=== PATIENT | female | born 1970 | race Caucasian/White ===

== ENCOUNTER 2018-09-16 10:45 | Emergency (ER) | payer OTHER ==
[~2018-09-16] VITALS: Ht 172.7 cm; Wt 117.9 kg
[~2018-09-16 10:45] MED LIST: ALPR0.5T PO
[2018-09-16 11:23] LABS: U PREG PATIENT NEGATIVE (NEG)
--- NOTE | 2018-09-16 11:50 | PHYS DOC ---
Past Medical History Past Medical History: Anxiety, High Cholesterol, Hypertension Past Surgical History: Cholecystectomy, , Other Additional Past Surgical Histo: rt.shoulder,ganglion cyst removal,rt knee scope Alcohol Use: Rarely Drug Use: None Adult General Chief Complaint Chief Complaint: ABDOMINAL PAIN HPI HPI Patient is a 48-year-old female who presents with complaint of epigastric abdominal pain that started 2 days ago. Patient states that pain is gotten a lot worse this morning. She states the pain radiates into her back. She rates pain at an 8 out of 10 and reports that she has had nausea associated with the pain. She states that she had her gallbladder out previously and states that she usually has loose stools when she eats but states that she has had a difficult time having bowel movement for the last 2 days. She denies any fever. She describes pain as being a deep cramp and at times sharp. Patient states that there were no alleviating factors and states that pain is worsened with movement and with palpation of her abdomen. Review of Systems Review of Systems Constitutional: Denies fever or chills [] Respiratory: Denies cough or shortness of breath [] Cardiovascular: No additional information not addressed in HPI [] GI: Complains of abdominal pain with nausea. No vomiting or diarrhea [] : Denies dysuria or hematuria [] All other systems were reviewed and found to be within normal limits, except as documented in this note. Current Medications Current Medications Current Medications Medications (Trade) Dose Ordered Sig/[facility] Start Time Stop Time Status Last Admin Dose Admin Fentanyl Citrate (Fentanyl 2ml Vial) 50 mcg PRN Q15MIN PRN 09/16/18 11:45 09/16/18 19:00 09/16/18 15:22 50 MCG Info (CONTRAST GIVEN -- Rx MONITORING) 1 each PRN DAILY PRN 09/16/18 14:00 09/18/18 13:59 Iohexol (Omnipaque 300 Mg/ml) 60 ml 1X ONCE 09/16/18 14:00 09/16/18 14:01 DC 09/16/18 14:22 60 ML Multi-Ingredient Mouthwash/Gargle (Gi Cocktail) 20 ml 1X ONCE 09/16/18 15:15 09/16/18 15:16 DC 09/16/18 15:20 20 ML Ondansetron HCl (Zofran) 4 mg 1X ONCE 09/16/18 12:00 09/16/18 12:01 DC 09/16/18 12:13 4 MG Sodium Chloride 1,000 ml @ 1,000 mls/hr Q1H 09/16/18 12:00 09/16/18 12:59 DC 09/16/18 12:12 1,000 MLS/HR Allergies Allergies Allergies Coded Allergies Type Severity Reaction Last Updated Verified No Known Drug Allergies 02/26/15 No Physical Exam Physical Exam Constitutional: Well developed, well nourished, no acute distress, non-toxic appearance. [] HENT: Normocephalic, atraumatic, bilateral external ears normal, oropharynx moist, no oral exudates, nose normal. [] Eyes: PERRLA, EOMI, conjunctiva normal, no discharge. [] Neck: Normal range of motion, no tenderness, supple, no stridor. [] Cardiovascular: Regular rate and rhythm [] Lungs & Thorax: Bilateral breath sounds clear to auscultation [] Abdomen: Bowel sounds normal, soft, with moderate epigastric and left upper quadrant tenderness. [] Skin: Warm, dry, no erythema, no rash. [] Extremities: No tenderness, no cyanosis, no clubbing, ROM intact, no edema. [] Neurologic: Alert and oriented X 3, no focal deficits noted. [] Current Patient Data Vital Signs Vital Signs Date Time Temp Pulse Resp B/P (MAP) Pulse Ox O2 Delivery O2 Flow Rate FiO2 09/16/18 13:09 66 16 96/66 (76) 100 Room Air 09/16/18 11:30 98.6 98.6 Lab Values Laboratory Tests Test 09/16/18 10:52 09/16/18 11:10 Urine Collection Type Unknown Urine Color Yellow Urine Clarity Clear Urine pH 5.5 Urine Specific [place] 1.015 Urine Protein Negative mg/dL (NEG-TRACE) Urine Glucose (UA) Negative mg/dL (NEG) Urine Ketones (Stick) Negative mg/dL (NEG) Urine Blood Negative (NEG) Urine Nitrite Negative (NEG) Urine Bilirubin Negative (NEG) Urine Urobilinogen Dipstick 0.2 mg/dL (0.2 mg/dL) Urine Leukocyte Esterase Negative (NEG) Urine RBC 0 /HPF (0-2) Urine WBC 0 /HPF (0-4) Urine Squamous Epithelial Cells Occ /LPF Urine Bacteria 0 /HPF (0-FEW) Urine Test Negative (NEG) White Blood Count 8.6 x10^3/uL (4.0-11.0) Red Blood Count 4.95 x10^6/uL (3.50-5.40) Hemoglobin 15.4 g/dL (12.0-15.5) Hematocrit 43.8 % (36.0-47.0) Mean Corpuscular Volume 89 fL (79-100) Mean Corpuscular Hemoglobin 31 pg (25-35) Mean Corpuscular Hemoglobin Concent 35 g/dL (31-37) Red Cell Distribution Width 14.1 % (11.5-14.5) Platelet Count 294 x10^3/uL (140-400) Neutrophils (%) (Auto) 54 % (31-73) Lymphocytes (%) (Auto) 31 % (24-48) Monocytes (%) (Auto) 8 % (0-9) Eosinophils (%) (Auto) 5 % (0-3) H Basophils (%) (Auto) 1 % (0-3) Neutrophils # (Auto) 4.7 x10^3uL (1.8-7.7) Lymphocytes # (Auto) 2.7 x10^3/uL (1.0-4.8) Monocytes # (Auto) 0.7 x10^3/uL (0.0-1.1) Eosinophils # (Auto) 0.4 x10^3/uL (0.0-0.7) Basophils # (Auto) 0.1 x10^3/uL (0.0-0.2) Sodium Level 138 mmol/L (136-145) Potassium Level 4.1 mmol/L (3.5-5.1) Chloride Level 100 mmol/L (98-107) Carbon Dioxide Level 28 mmol/L (21-32) Anion Gap 10 (6-14) Blood Urea Nitrogen 17 mg/dL (7-20) Creatinine 1.1 mg/dL (0.6-1.0) H Estimated GFR (Cockcroft-Gault) 52.8 BUN/Creatinine Ratio 15 (6-20) Glucose Level 93 mg/dL (70-99) Calcium Level 9.4 mg/dL (8.5-10.1) Total Bilirubin 0.4 mg/dL (0.2-1.0) Aspartate Amino Transferase (AST) 18 U/L (15-37) Alanine Aminotransferase (ALT) 36 U/L (14-59) Alkaline Phosphatase 97 U/L (46-116) Troponin I Quantitative < 0.017 ng/mL (0.000-0.055) Total Protein 7.4 g/dL (6.4-8.2) Albumin 3.6 g/dL (3.4-5.0) Albumin/Globulin Ratio 0.9 (1.0-1.7) L Lipase 152 U/L (73-393) Laboratory Tests 09/16/18 11:10 Laboratory Tests 09/16/18 11:10 EKG EKG [] Radiology/Procedures Radiology/Procedures [] Impressions: EXAM: Abdomen and pelvis CT with intravenous contrast. HISTORY: Pain. TECHNIQUE: Computed tomographic images of the abdomen and pelvis were obtained following the administration of 60 cc Omnipaque 300 intravenous contrast. Multiplanar reformatting was performed. *One or more of the following individualized dose reduction techniques were utilized for this examination: 1. Automated exposure control. 2. Adjustment of the mA and/or kV according to patient size. 3. Use of iterative reconstruction technique. COMPARISON: None. FINDINGS: Evaluation of the lower thorax is unremarkable. There is mild hepatomegaly and suspected hepatic steatosis. The gallbladder is surgically absent. The pancreas, spleen and adrenal glands are unremarkable. The kidneys are unremarkable. There is no appendicitis. There is no bowel obstruction. There are few colonic diverticula. The uterus is unremarkable. There are multiple ovarian follicles with dominant right ovarian follicular cysts measuring 2.9 cm and 1.6 cm. There is no lymphadenopathy. There is no suspicious osseous lesion. There is an incidental transitional lumbosacral segment. IMPRESSION: 1. 2 right ovarian follicular cysts, the largest of which measures 2.9 cm. 2. Few colonic diverticula. There is no evidence of diverticulitis. 3. Suspected mild hepatomegaly and hepatic steatosis. Electronically signed by: Siobhan Black MD (09/16/2018 2:40 PM) [facility] Course & Med Decision Making Course & Med Decision Making Pertinent Labs and Imaging studies reviewed. (See chart for details) [] Dragon Disclaimer Dragon Disclaimer This electronic medical record was generated, in whole or in part, using a voice recognition dictation system. Departure Departure Impression: Primary Impression: Epigastric abdominal pain Disposition: HOME, SELF-CARE Condition: STABLE Referrals: JOYCE IRIZARRY (PCP) Patient Instructions: Abdominal Pain Scripts Omeprazole (OMEPRAZOLE) 40 Mg Capsule.dr 1 CAP PO DAILY, #30 CAP Prov: NELLY PETERS Jr. DO 09/16/18 Ondansetron Hcl (ZOFRAN) 4 Mg Tablet 4 MG PO PRN TID PRN for NAUSEA/VOMITING, #15 nausea/vomiting Prov: NELLY PETERS Jr. DO 09/16/18 Hydrocodone/Apap 5-325 (NORCO 5-325 TABLET) 1 Each Tablet 1 EACH PO PRN Q6HRS PRN for PAIN, #15 as needed for pain Prov: NELLY PETERS Jr. DO 09/16/18 NELLY PETERS Jr. DO Sep 16, 2018 11:50
[2018-09-16] MEDS ORDERED: ONDANSETRON PF 4 MG/2 ML VIAL. IV ONE (12:00)
[2018-09-16] MEDS ORDERED: IV NORMAL SALINE 1000ML BAG 1,000 ML IV SCH (12:00)
[2018-09-16] MEDS: fentaNYL PF VIAL 100 MCG/2 ML VIAL IV PRN ×2 (12:11→15:22)
[2018-09-16 12:16] LABS: CALCIUM 9.4 mg/dL (8.5-10.1); CREATININE 1.1 mg/dL (0.6-1.0); GFR 52.8; POTASSIUM 4.1 mmol/L (3.5-5.1)
--- NOTE | 2018-09-16 12:17 | EKG ---
[facility] [address] [place] [address] Test Date: 2018-09-16 Test Time: 12:13:01 Pat Name: MARCELLE JORGE Department: Room: Gender: F [employer] Sprayer: [place] : 1970 Requested By: NELLY PETERS Order Number: [id number] Reading MD: Amandeep Medina Measurements Intervals [place] Rate: 64 P: 25 UT: 134 QRS: 62 QRSD: 84 T: 36 QT: 458 QTc: 477 Interpretive Statements SINUS RHYTHM PROLONGED QT Electronically Signed On 09-22-2018 9:23:43 [employer] by Amandeep Medina
[2018-09-16 12:22] LABS: ALBUMIN 3.6 g/dL (3.4-5.0); ALBUMIN/GLOBULIN RATIO 0.9 (1.0-1.7); TOTAL BILIRUBIN 0.4 mg/dL (0.2-1.0); TOTAL PROTEIN 7.4 g/dL (6.4-8.2)
[2018-09-16 12:23] LABS: BASO # 0.1 x10^3/uL (0.0-0.2); BASO % 1 % (0-3); EOS # 0.4 x10^3/uL (0.0-0.7); EOS % 5 % (0-3); HEMATOCRIT 43.8 % (36.0-47.0); HEMOGLOBIN 15.4 g/dL (12.0-15.5); LYMPH # 2.7 x10^3/uL (1.0-4.8); LYMPH % 31 % (24-48); MEAN CORPUSCULAR HEMOGLOBIN 31 pg (25-35); MEAN CORPUSCULAR HGB CONC 35 g/dL (31-37); MEAN CORPUSCULAR VOLUME 89 fL (79-100); MONO # 0.7 x10^3/uL (0.0-1.1); MONO % 8 % (0-9); NEUT # 4.7 x10^3uL (1.8-7.7); NEUT % 54 % (31-73); PLATELET COUNT 294 x10^3/uL (140-400); RED BLOOD COUNT 4.95 x10^6/uL (3.50-5.40); RED CELL DISTRIBUTION WIDTH 14.1 % (11.5-14.5); WHITE BLOOD COUNT 8.6 x10^3/uL (4.0-11.0)
[2018-09-16] MEDS ORDERED: CONTRAST GIVEN. MC PRN (14:00)
[2018-09-16] MEDS ORDERED: IOHEXOL 300 MG/ML 100ML VIAL. IV ONE (14:00)
[2018-09-16 14:28] LABS: BILIRUBIN,URINE NEGATIVE (NEG); CLARITY,URINE CLEAR; COLOR,URINE YELLOW; NITRITE,URINE NEGATIVE (NEG); PH,URINE 5.5; PROTEIN,URINE NEGATIVE (NEG-TRACE); UROBILINOGEN,URINE 0.2 mg/dL (0.2 mg/dL)
--- NOTE | 2018-09-16 14:44 | RAD ---
EXAM: Abdomen and pelvis CT with intravenous contrast. HISTORY: Pain. TECHNIQUE: Computed tomographic images of the abdomen and pelvis were obtained following the administration of 60 cc Omnipaque 300 intravenous contrast. Multiplanar reformatting was performed. *One or more of the following individualized dose reduction techniques were utilized for this examination: 1. Automated exposure control. 2. Adjustment of the mA and/or kV according to patient size. 3. Use of iterative reconstruction technique. COMPARISON: None. FINDINGS: Evaluation of the lower thorax is unremarkable. There is mild hepatomegaly and suspected hepatic steatosis. The gallbladder is surgically absent. The pancreas, spleen and adrenal glands are unremarkable. The kidneys are unremarkable. There is no appendicitis. There is no bowel obstruction. There are few colonic diverticula. The uterus is unremarkable. There are multiple ovarian follicles with dominant right ovarian follicular cysts measuring 2.9 cm and 1.6 cm. There is no lymphadenopathy. There is no suspicious osseous lesion. There is an incidental transitional lumbosacral segment. IMPRESSION: 1. 2 right ovarian follicular cysts, the largest of which measures 2.9 cm. 2. Few colonic diverticula. There is no evidence of diverticulitis. 3. Suspected mild hepatomegaly and hepatic steatosis. Electronically signed by: Siobhan Black MD (09/16/2018 2:40 PM) [facility]
[2018-09-16 14:59] LABS: BACTERIA,URINE 0 /HPF (0-FEW); RBC,URINE 0 /HPF (0-2); SQUAMOUS EPITHELIAL CELL,UR OCC /LPF; WBC,URINE 0 /HPF (0-4)
[2018-09-16] MEDS ORDERED: LIDO:MAALOX 1:1 20 ML SINGLE DOSE. SWSW ONE (15:15)
[2018-09-16] MEDS ORDERED: ONDA4TAB7 PO (15:33)
[2018-09-16] MEDS ORDERED: HYDR-3164 PO (15:33)
[2018-09-16] MEDS ORDERED: OMEP40CA5 PO (16:03)
[2018-09-16 16:18] VITALS: BP 102/49
== END 2018-09-16 16:35 | disposition home or self-care (01) ==
LOC: ER 10:45
DX: R10.13 Epigastric pain (principal); N83.01 Follicular cyst of right ovary; K57.32 Diverticulitis of large intestine without perforation or abscess without bleeding; E78.00 Pure hypercholesterolemia, unspecified; I10 Essential (primary) hypertension; F41.9 Anxiety disorder, unspecified; Z90.49 Acquired absence of other specified parts of digestive tract; Z98.890 Other specified postprocedural states
CPT/HCPCS: 36415; 74177; 80053; 81001; 81025; 83690; 84484; 85025; 93005; 96374; 96375; 99284; J2405; J3010; J7030; Q9967

== ENCOUNTER 2018-10-13 05:28 | Emergency (ER) | payer OTHER ==
[~2018-10-13] VITALS: Ht 172.7 cm; Wt 123.4 kg
[~2018-10-13 05:28] MED LIST changes: +HYDR-3164 PO; +OMEP40CA5 PO; +ONDA4TAB7 PO
--- NOTE | 2018-10-13 06:10 | PHYS DOC ---
Past Medical History Past Medical History: Anxiety, High Cholesterol, Hypertension (KARTIK CRYSTAL DO) Past Surgical History: Cholecystectomy, , Other Additional Past Surgical Histo: rt.shoulder,ganglion cyst removal,rt knee scope (KARTIK CRYSTAL DO) Alcohol Use: Rarely Drug Use: None (KARTIK CRYSTAL DO) Adult General Chief Complaint Chief Complaint: POST-OP PROBLEM HPI HPI Patient is a 48 year old female who presents with diffuse body pain that started last night. Patient had EGD done yesterday for abdominal pain and states exam revealed polyps, biopsies obtained. She states last night she just could not get comfortable and has been experiencing "shooting nerve pain all over her body from her head to her toes and nausea." Also thinks her right arm and hand is swollen compared to her left. She took a hydrocodone and tylenol that "did not even touch the pain." She denies SOB, chest pain, diarrhea, dysphagia. Also denies feeling anxious or any recent life stressors. Of note she has not had her medication or the past two days secondary to her scheduled procedure. Reports history of panic attacks and anxiety. (KARTIK CRYSTAL DO) Review of Systems Review of Systems Constitutional: Denies fever or chills [] Eyes: Denies change in visual acuity, redness, or eye pain [] HENT: Denies nasal congestion or sore throat [] Respiratory: Denies cough or shortness of breath [] Cardiovascular: No chest pain, no dizziness GI: Reports abdominal pain and nausea : Denies dysuria or hematuria [] Musculoskeletal: Reports diffuse body pains Integument: Denies rash or skin lesions [] Neurologic: Denies headache, focal weakness or sensory changes [] Complete systems were reviewed and found to be within normal limits, except as documented in this note. (KARTIK CRYSTAL DO) Current Medications Current Medications Current Medications Medications (Trade) Dose Ordered Sig/Alvaro Start Time Stop Time Status Last Admin Dose Admin Lorazepam (Ativan) 0.5 mg 1X ONCE 10/13/18 06:30 10/13/18 06:31 DC 10/13/18 06:30 0.5 MG Ondansetron HCl (Zofran) 4 mg 1X ONCE 10/13/18 06:30 10/13/18 06:31 DC 10/13/18 06:28 4 MG Sodium Chloride 1,000 ml @ 1,000 mls/hr 1X ONCE 10/13/18 06:30 10/13/18 07:29 DC 10/13/18 06:25 1,000 MLS/HR (ANÍBAL IRELAND MD) Allergies Allergies Allergies Coded Allergies Type Severity Reaction Last Updated Verified No Known Drug Allergies 02/26/15 No (ANÍBAL IRELAND MD) Physical Exam Physical Exam Constitutional: obese, no acute distress, non-toxic appearance, appears anxious HENT: Normocephalic, atraumatic, oropharynx dry Eyes: PERRL, EOMI, conjunctiva normal, no discharge. [] Neck: Normal range of motion, tenderness over right lateral neck extending to shoulder, no crepitus Cardiovascular: Heart rate regular rhythm, no murmur [] Lungs & Thorax: Bilateral breath sounds clear to auscultation [] Abdomen: soft, no focal tenderness, no distension [] Skin: Warm, dry, no erythema, no rash. [] Extremities: moves all, no edema Neurologic: Alert and oriented X 3, normal motor function, normal sensory function, no focal deficits noted. [] Psychologic: anxious, normal judgement (KARTIK CRYSTAL DO) Current Patient Data Vital Signs Vital Signs Date Time Temp Pulse Resp B/P (MAP) Pulse Ox O2 Delivery O2 Flow Rate FiO2 10/13/18 05:40 98.0 77 18 179/96 (123) 98 Room Air 98.0 (ANÍBAL IRELAND MD) Lab Values Laboratory Tests Test 10/13/18 05:48 10/13/18 07:34 White Blood Count 8.8 x10^3/uL (4.0-11.0) Red Blood Count 4.79 x10^6/uL (3.50-5.40) Hemoglobin 14.1 g/dL (12.0-15.5) Hematocrit 42.7 % (36.0-47.0) Mean Corpuscular Volume 89 fL (79-100) Mean Corpuscular Hemoglobin 29 pg (25-35) Mean Corpuscular Hemoglobin Concent 33 g/dL (31-37) Red Cell Distribution Width 13.5 % (11.5-14.5) Platelet Count 270 x10^3/uL (140-400) Neutrophils (%) (Auto) 45 % (31-73) Lymphocytes (%) (Auto) 41 % (24-48) Monocytes (%) (Auto) 9 % (0-9) Eosinophils (%) (Auto) 4 % (0-3) H Basophils (%) (Auto) 1 % (0-3) Neutrophils # (Auto) 4.0 x10^3uL (1.8-7.7) Lymphocytes # (Auto) 3.6 x10^3/uL (1.0-4.8) Monocytes # (Auto) 0.8 x10^3/uL (0.0-1.1) Eosinophils # (Auto) 0.4 x10^3/uL (0.0-0.7) Basophils # (Auto) 0.1 x10^3/uL (0.0-0.2) Sodium Level 138 mmol/L (136-145) Potassium Level 3.7 mmol/L (3.5-5.1) Chloride Level 105 mmol/L (98-107) Carbon Dioxide Level 24 mmol/L (21-32) Anion Gap 9 (6-14) Blood Urea Nitrogen 17 mg/dL (7-20) Creatinine 0.9 mg/dL (0.6-1.0) Estimated GFR (Cockcroft-Gault) 66.5 BUN/Creatinine Ratio 19 (6-20) Glucose Level 106 mg/dL (70-99) H Calcium Level 8.8 mg/dL (8.5-10.1) Total Bilirubin 0.3 mg/dL (0.2-1.0) Aspartate Amino Transferase (AST) 21 U/L (15-37) Alanine Aminotransferase (ALT) 47 U/L (14-59) Alkaline Phosphatase 96 U/L (46-116) Creatine Kinase 87 U/L (26-192) Creatine Kinase MB (Mass) 0.8 ng/mL (0.0-3.6) Creatine Kinase MB Relative Index 0.9 % (0-4) Troponin I Quantitative < 0.017 ng/mL (0.000-0.055) Total Protein 7.2 g/dL (6.4-8.2) Albumin 3.1 g/dL (3.4-5.0) L Albumin/Globulin Ratio 0.8 (1.0-1.7) L Lipase 255 U/L (73-393) Urine Collection Type Unknown Urine Color Yellow Urine Clarity Clear Urine pH 5.5 Urine Specific [place] 1.015 Urine Protein Negative mg/dL (NEG-TRACE) Urine Glucose (UA) Negative mg/dL (NEG) Urine Ketones (Stick) Negative mg/dL (NEG) Urine Blood Negative (NEG) Urine Nitrite Negative (NEG) Urine Bilirubin Negative (NEG) Urine Urobilinogen Dipstick 0.2 mg/dL (0.2 mg/dL) Urine Leukocyte Esterase Negative (NEG) Urine RBC 0 /HPF (0-2) Urine WBC Occ /HPF (0-4) Urine Squamous Epithelial Cells Occ /LPF Urine Bacteria 0 /HPF (0-FEW) Urine Mucus Slight /LPF POC Urine HCG, Qualitative Hcg negative (Negative) Laboratory Tests 10/13/18 05:48 Laboratory Tests 10/13/18 05:48 (ANÍBAL IRELAND MD) EKG EKG [] (KARTIK CRYSTAL DO) EKG Normal sinus rhythm with a normal rate, normal axis, normal intervals, there are no acute ischemic ST/T changes. (ANÍBAL IRELAND MD) Radiology/Procedures Radiology/Procedures [] (KARTIK CRYSTAL DO) Radiology/Procedures PROCEDURE: ACUTE ABDOMEN SERIES Examination: ACUTE ABDOMEN SERIES History: PAIN, RECENT HX OF RECENT EGD Comparison/Correlation: 09/16/2017 CT abdomen and pelvis with contrast Findings: Upright frontal view of the chest was obtained. Supine and upright views of the abdomen were obtained. Heart size and pulmonary vascular are normal. No infiltrate or pleural effusion. No pneumothorax. Right upper quadrant surgical clips are present. No bowel obstruction. Fluid levels are present within nondistended bowel. Transitional L5 vertebra is suggested. Surgical clip at the right lateral midabdomen noted. Moderate quantity of retained stool in the colon. Impression: No obstruction. No infiltrate. No definite suspicious process. (ANÍBAL IRELAND MD) Course & Med Decision Making Course & Med Decision Making Pertinent Labs and Imaging studies reviewed. (See chart for details) [] Patient presents with diffuse body pains that started last night. She had EGD yesterday for investigation of her abdominal pain. Pain not controlled with tylenol or hydrocodone at home. Neurologically intact. Patient also concerned for right hand swelling. No significant edema noted in comparison to other hand. Of note patient has not had antianxiety medication for two days due to her scheduled procedure. Anxiety addressed. Currently labs, EKG and imaging is pending. Signing out patient to Dr. Ireland for further evaluation and final disposition. Discussed current findings and plan with patient and family, who acknowledge understanding and agreement. (KARTIK CRYSTAL DO) Course & Med Decision Making Patient care was assumed from Dr. Crystal at shift change. She states that she awakened with pain in her right arm which moved to her left arm and then spread throughout her whole body. She reports a sharp electrical-type "nerve" pain. She states that she is having right hand swelling but there is no evidence of any edema to the right hand relative to the left. Normal pulses are intact with the patient did have an IV in her right forearm yesterday for her EGD, but there is no evidence of any thrombophlebitis on exam. She is feeling better after anxiolytic, she has had no chest pain. She is neurologically intact. I discussed the uncertain etiology of her symptoms, the need for close follow-up with her PCP and return precautions. (ANÍBAL IRELAND MD) Dragon Disclaimer Dragon Disclaimer This electronic medical record was generated, in whole or in part, using a voice recognition dictation system. (KARTIK CRYSTAL DO) Departure Departure Impression: Primary Impression: Pain Additional Impression: Anxiety Disposition: 01 HOME, SELF-CARE Condition: STABLE Referrals: JOYCE IRIZARRY (PCP) Patient Instructions: Anxiety and Panic Attacks, Pain of Unknown Etiology ( Pain without a known Cause), Pain, Neuropathic Problem Qualifiers KARTIK CRYSTAL DO Oct 13, 2018 06:10 ANÍBAL IRELAND MD Oct 13, 2018 06:41
[2018-10-13 06:23] LABS: BASO # 0.1 x10^3/uL (0.0-0.2); BASO % 1 % (0-3); EOS # 0.4 x10^3/uL (0.0-0.7); EOS % 4 % (0-3); HEMATOCRIT 42.7 % (36.0-47.0); HEMOGLOBIN 14.1 g/dL (12.0-15.5); LYMPH # 3.6 x10^3/uL (1.0-4.8); LYMPH % 41 % (24-48); MEAN CORPUSCULAR HEMOGLOBIN 29 pg (25-35); MEAN CORPUSCULAR HGB CONC 33 g/dL (31-37); MEAN CORPUSCULAR VOLUME 89 fL (79-100); MONO # 0.8 x10^3/uL (0.0-1.1); MONO % 9 % (0-9); NEUT % 45 % (31-73); PLATELET COUNT 270 x10^3/uL (140-400); RED BLOOD COUNT 4.79 x10^6/uL (3.50-5.40); RED CELL DISTRIBUTION WIDTH 13.5 % (11.5-14.5); WHITE BLOOD COUNT 8.8 x10^3/uL (4.0-11.0)
[2018-10-13] MEDS ORDERED: IV NORMAL SALINE 1000ML BAG 1,000 ML IV ONE (06:30)
[2018-10-13] MEDS ORDERED: ONDANSETRON PF 4 MG/2 ML VIAL. IV ONE (06:30)
[2018-10-13 06:32] LABS: CALCIUM 8.8 mg/dL (8.5-10.1); CREATININE 0.9 mg/dL (0.6-1.0); GFR 66.5; POTASSIUM 3.7 mmol/L (3.5-5.1)
[2018-10-13 06:38] LABS: ALBUMIN 3.1 g/dL (3.4-5.0); ALBUMIN/GLOBULIN RATIO 0.8 (1.0-1.7); TOTAL BILIRUBIN 0.3 mg/dL (0.2-1.0); TOTAL PROTEIN 7.2 g/dL (6.4-8.2)
--- NOTE | 2018-10-13 06:40 | EKG ---
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
[2018-10-13 07:41] LABS: BILIRUBIN,URINE NEGATIVE (NEG); CLARITY,URINE CLEAR; COLOR,URINE YELLOW; NITRITE,URINE NEGATIVE (NEG); PH,URINE 5.5; PROTEIN,URINE NEGATIVE (NEG-TRACE); UROBILINOGEN,URINE 0.2 mg/dL (0.2 mg/dL)
[2018-10-13 07:57] LABS: BACTERIA,URINE 0 /HPF (0-FEW); RBC,URINE 0 /HPF (0-2); SQUAMOUS EPITHELIAL CELL,UR OCC /LPF; WBC,URINE OCC /HPF (0-4)
--- NOTE | 2018-10-13 08:08 | RAD ---
Examination: ACUTE ABDOMEN SERIES History: PAIN, RECENT HX OF RECENT EGD Comparison/Correlation: 09/16/2017 CT abdomen and pelvis with contrast Findings: Upright frontal view of the chest was obtained. Supine and upright views of the abdomen were obtained. Heart size and pulmonary vascular are normal. No infiltrate or pleural effusion. No pneumothorax. Right upper quadrant surgical clips are present. No bowel obstruction. Fluid levels are present within nondistended bowel. Transitional L5 vertebra is suggested. Surgical clip at the right lateral midabdomen noted. Moderate quantity of retained stool in the colon. Impression: No obstruction. No infiltrate. No definite suspicious process. Electronically signed by: Taj Pulido MD (10/13/2018 8:03 AM) [facility]
[2018-10-13 08:30] VITALS: BP 136/72
== END 2018-10-13 08:45 | disposition home or self-care (01) ==
LOC: ER 05:28
DX: G89.18 Other acute postprocedural pain (principal); F41.0 Panic disorder [episodic paroxysmal anxiety]; R10.9 Unspecified abdominal pain; R11.0 Nausea; M79.18 Myalgia, other site; E66.9 Obesity, unspecified; Z90.49 Acquired absence of other specified parts of digestive tract; E78.00 Pure hypercholesterolemia, unspecified; I10 Essential (primary) hypertension; Z98.890 Other specified postprocedural states; Z68.41 Body mass index [BMI] 40.0-44.9, adult
CPT/HCPCS: 36415; 74022; 80053; 81001; 81025; 82553; 83690; 84484; 85025; 93005; 96374; 96375; 99284; J2060; J2405; J7030

== ENCOUNTER 2019-03-08 17:48 | Emergency (ER) | payer OTHER ==
[~2019-03-08] VITALS: Ht 172.7 cm; Wt 127.0 kg
[2019-03-08 19:00] VITALS: BP 138/62
[2019-03-08] MEDS ORDERED: ORPHENADRINE CITRATE 60 MG/2 ML VIAL. IM ONE (20:00)
[2019-03-08] MEDS ORDERED: KETOROLAC 60 MG/2 ML VIAL. IM ONE (20:00)
[2019-03-08] MEDS ORDERED: ORPH100T PO (20:23)
[2019-03-08] MEDS ORDERED: HYDR-3164 PO (20:23)
--- NOTE | 2019-03-08 20:23 | PHYS DOC ---
Past Medical History Past Medical History: Anxiety, High Cholesterol, Hypertension Past Surgical History: Cholecystectomy, , Other Additional Past Surgical Histo: rt.shoulder,ganglion cyst removal,rt knee scope Alcohol Use: Rarely Drug Use: None Adult General Chief Complaint Chief Complaint: UPPER EXTREMITY PAIN HPI HPI Patient is a 48 year old female who presents with states was lifting a window unit air-conditioner today when she felt a sharp pulling pain in her right bicep. She rates her pain a 10 out of 10. Review of Systems Review of Systems Constitutional: Denies fever or chills [] Eyes: Denies change in visual acuity, redness, or eye pain [] HENT: Denies nasal congestion or sore throat [] Respiratory: Denies cough or shortness of breath [] Cardiovascular: No additional information not addressed in HPI [] GI: Denies abdominal pain, nausea, vomiting, bloody stools or diarrhea [] : Denies dysuria or hematuria [] Musculoskeletal: Right upper arm pain. Denies back pain or joint pain [] Integument: Denies rash or skin lesions [] Neurologic: Denies headache, focal weakness or sensory changes [] Endocrine: Denies polyuria or polydipsia [] All other systems were reviewed and found to be within normal limits, except as documented in this note. Current Medications Current Medications Current Medications Medications (Trade) Dose Ordered Sig/Alvaro Start Time Stop Time Status Last Admin Dose Admin Ketorolac Tromethamine (Toradol Im) 60 mg 1X ONCE 03/08/19 20:00 03/08/19 20:01 DC 03/08/19 19:51 60 MG Orphenadrine Citrate (Norflex) 60 mg 1X ONCE 03/08/19 20:00 03/08/19 20:01 DC 03/08/19 19:51 60 MG Allergies Allergies Allergies Coded Allergies Type Severity Reaction Last Updated Verified No Known Drug Allergies 02/26/15 No Physical Exam Physical Exam Constitutional: Well developed, well nourished, no acute distress, non-toxic appearance. [] HENT: Normocephalic, atraumatic, bilateral external ears normal, oropharynx moist, no oral exudates, nose normal. [] Eyes: PERRLA, EOMI, conjunctiva normal, no discharge. [] Neck: Normal range of motion, no tenderness, supple, no stridor. [] Cardiovascular:Heart rate regular rhythm, no murmur [] Lungs & Thorax: Bilateral breath sounds clear to auscultation [] Abdomen: Bowel sounds normal, soft, no tenderness, no masses, no pulsatile masses. [] Skin: Warm, dry, no erythema, no rash. [] Back: No tenderness, no CVA tenderness. [] Extremities: Right lower to mid upper arm and/or bicep tenderness, no cyanosis, no clubbing, right arm ROM at elbow not intact, no edema. [] Neurologic: Alert and oriented X 3, normal motor function, normal sensory function, no focal deficits noted. [] Psychologic: Affect normal, judgement normal, mood normal. [] Current Patient Data Vital Signs Vital Signs Date Time Temp Pulse Resp B/P (MAP) Pulse Ox O2 Delivery O2 Flow Rate FiO2 03/08/19 19:00 98.1 93 18 138/62 (87) 97 Room Air 98.1 EKG EKG [] Radiology/Procedures Radiology/Procedures [] Course & Med Decision Making Course & Med Decision Making Patient is a 48 year old female who presents with states was lifting a window unit air-conditioner today when she felt a sharp pulling pain in her right bicep. She rates her pain a 10 out of 10. Patient does have control over the bicep and it has not seemed to be any laxity in the joint but is very painful patient to move and there is limited range of motion at the elbow when extending the arm out straight. There is not look to be any swelling, bruising or deformity to the arm. I did not feel any lumps or bumps in the bicep at the bicep is tender from lower bicep to mid bicep. Radial pulse strong and palpable. Cap refill less than 3 seconds. Denies any numbness or tingling in that extremity. Patient is given Norflex and Toradol in the ED. X-ray show no obvious acute findings and were read by Dr. Cortez. Is given prescription for [place] and a muscle relaxer. She is to call her doctor in the morning. Patient is also given a arm sling. Dragon Disclaimer Dragon Disclaimer This electronic medical record was generated, in whole or in part, using a voice recognition dictation system. Departure Departure Impression: Primary Impression: Muscle strain Disposition: 01 HOME, SELF-CARE Condition: STABLE Referrals: JOYCE IRIZARRY (PCP) Patient Instructions: Muscle Strain Additional Instructions: Call primary care doctor in the morning for follow-up. Take medication as prescribed. Try using heat on the area. Scripts Hydrocodone/Apap 5-325 (NORCO 5-325 TABLET) 1 Each Tablet 1 TAB PO PRN Q6HRS PRN for PAIN, #10 TAB 0 Refills Prov: ANDREW ARGUELLES APRN 03/08/19 Orphenadrine Citrate (ORPHENADRINE CITRATE) 100 Mg Tablet.er 1 TAB PO BID, #14 TAB 1 Refill Prov: ANDREW ARGUELLES APRN 03/08/19 ANDREW ARGUELLES APRN Mar 08, 2019 20:23
--- NOTE | 2019-03-08 23:55 | RAD ---
Two-view right humerus radiographs to include 3 view radiographs of the right elbow 03/08/2019 CLINICAL HISTORY: Right arm and elbow pain. AP and lateral digital radiographs of the right humerus were obtained. AP, lateral and oblique digital radiographs of the right elbow were obtained. No fracture or dislocation of the right humerus is seen. No fracture or dislocation of the right elbow is noted. There is no radiographic evidence for joint effusion. IMPRESSION: No fracture or dislocation is seen. Electronically signed by: Jaime Avelar MD (03/08/2019 11:52 PM) [facility]
== END 2019-03-08 20:33 | disposition home or self-care (01) ==
LOC: ER 17:48
DX: S46.211A Strain of muscle, fascia and tendon of other parts of biceps, right arm, initial encounter (principal); F41.9 Anxiety disorder, unspecified; E78.00 Pure hypercholesterolemia, unspecified; I10 Essential (primary) hypertension; Z90.49 Acquired absence of other specified parts of digestive tract; Z98.890 Other specified postprocedural states; X50.9XXA Other and unspecified overexertion or strenuous movements or postures, initial encounter; Y93.89 Activity, other specified; Y92.89 Other specified places as the place of occurrence of the external cause; Y99.8 Other external cause status
CPT/HCPCS: 73060; 73080; 96372; 99284; J1885; J2360

== ENCOUNTER 2021-02-18 17:48 | Emergency (ER) | payer OTHER ==
[~2021-02-18] VITALS: Ht 172.7 cm; Wt 130.0 kg
[~2021-02-18 17:48] MED LIST changes: -OMEP40CA5 PO; +OMEP40CA7 PO; +ORPH100T PO
[2021-02-18 18:29] LABS: BASO # 0.1 x10^3/uL (0.0-0.2); BASO % 1 % (0-3); EOS # 0.3 x10^3/uL (0.0-0.7); EOS % 3 % (0-3); HEMATOCRIT 46.2 % (36.0-47.0); HEMOGLOBIN 15.5 g/dL (12.0-15.5); LYMPH # 2.9 x10^3/uL (1.0-4.8); LYMPH % 25 % (24-48); MEAN CORPUSCULAR HEMOGLOBIN 30 pg (25-35); MEAN CORPUSCULAR HGB CONC 34 g/dL (31-37); MEAN CORPUSCULAR VOLUME 90 fL (79-100); MONO # 0.8 x10^3/uL (0.0-1.1); MONO % 7 % (0-9); NEUT # 7.3 x10^3/uL (1.8-7.7); NEUT % 64 % (31-73); PLATELET COUNT 273 x10^3/uL (140-400); RED BLOOD COUNT 5.15 x10^6/uL (3.50-5.40); RED CELL DISTRIBUTION WIDTH 13.7 % (11.5-14.5); WHITE BLOOD COUNT 11.4 x10^3/uL (4.0-11.0)
[2021-02-18] MEDS ORDERED: KETOROLAC 30 MG/ML VIAL. IVP ONE (18:30)
[2021-02-18] MEDS ORDERED: IV NORMAL SALINE 1000ML BAG 1,000 ML IV ONE (18:30)
--- NOTE | 2021-02-18 18:33 | PHYS DOC ---
Past Medical History Past Medical History: Anxiety, High Cholesterol, Hypertension Past Surgical History: Cholecystectomy, , Other Additional Past Surgical Histo: rt.shoulder,ganglion cyst removal,rt knee scope Smoking Status: Never Smoker Alcohol Use: Rarely Drug Use: None General Adult EDM: Chief Complaint: NEURO SYMPTOMS/DEFICITS HPI: HPI: Patient is a 50 year old female with a past medical history of vertigo hypertension hyperlipidemia anxiety presents with a chief complaint of headache, dizziness, and paresthesia. Patient states majority of her symptoms started 3 weeks ago. Those symptoms included a headache that she states encompasses her whole head--goes from back to front.. She describes the pain as tingling. She states her jaw hurts and her ears pop. Patient states she has numbness and tingling in her bilateral face worse on the right. She states her face feels swollen. She also states she has dizziness. Dizziness similar to her previous vertigo symptoms but worse. Dizziness is exacerbated with head movement and relieved with rest. Patient tells me both of her arms have been falling asleep. Patient states she saw her primary care physician approximately 3 weeks ago. Patient was diagnosed with sinusitis and prescribed amoxicillin. Patient has finished her presc ription and symptoms still persist. Today patient states around 1430 hrs. she felt as if she was going to pass out. Patient states she feels she is going to collapse whenever she stands. Review of Systems: Review of Systems: Review of systems: Constitutional symptoms- No fever, no chills. Eyes- No Discharge, No Visual Loss Respiratory symptoms- No shortness of breath, No wheezing, No Dyspnea on Exertion Cardiovascular Systems; No chest pain, No Palpitations, No syncope Gastrointestinal symptoms: NO abdominal pain, no nausea, no vomiting or diarrhea. Genitourinary symptoms: No dysuria. Musculoskeletal symptoms: No back pain No extremity pain. NEUROLOGICAL Symptoms: Positive headache, no generalized weakness; No focal Weakness positive dizziness positive paresthesia Heart Score: C/O Chest Pain: N/A Risk Factors: Risk Factors: DM, Current or recent (<one month) smoker, HTN, HLP, family history of CAD, obesity. Risk Scores: Score 0 - 3: 2.5% MACE over next 6 weeks - Discharge Home Score 4 - 6: 20.3% MACE over next 6 weeks - Admit for Clinical Observation Score 7 - 10: 72.7% MACE over next 6 weeks - Early Invasive Strategies Current Medications: Current Medications Medications (Trade) Dose Ordered Sig/Alvaro Start Time Stop Time Status Last Admin Dose Admin Ketorolac Tromethamine (Toradol 30mg Vial) 30 mg 1X ONCE 02/18/21 18:30 02/18/21 18:31 UNV Lorazepam (Ativan Inj) 1 mg 1X ONCE 02/18/21 18:30 02/18/21 18:31 Sodium Chloride 1,000 ml @ 1,000 mls/hr 1X ONCE 02/18/21 18:30 02/18/21 19:29 Allergies: Allergies: Allergies Coded Allergies Type Severity Reaction Last Updated Verified No Known Drug Allergies 02/26/15 No Physical Exam: PE: General: alert, no acute distress. Skin: warm, dry and intact. Head:: Normocephalic, atraumatic. Neck: Trachea midline. Eyes: EOMI, Normal conjunctiva, No drainage CARDIOVASCULAR: Regular rate and rhythm RESPIRATORY: No respiratory distress Back: Full range of motion. MUSCULOSKELETAL: Full range of motion of bilateral upper and lower extremities. GASTROINTESTINAL: Abdomen soft without rebound or guarding. NEUROLOGICAL: Alert and noted to person, place and time. No neurological deficits observed--no facial droop, no focal weakness, ambulated into the ER Psychiatric: Cooperative. Normal judgment EKG: EKG: [] Normal Sinus Rhythm Rate [address] ST depression No acute CO Performed at 1804 Radiology/Procedures: Radiology/Procedures: [] Impression: CT head without contrast PQRS statement: CT scans at this facility use dose reduction including either au tomated exposure control, iterative reconstructions, and /or weight based radiation dosing via mA and kV modification when appropriate to reduce radiation dose to as low as reasonably achievable. HISTORY: Dizziness, headache, paresthesias. 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 No intracranial hemorrhage, mass, hydrocephalus, extra-axial fluid collections or infarction. Orbits, mastoids and bones are unremarkable. IMPRESSION: No acute abnormality. Course & Med Decision Making: Course & Med Decision Making Pertinent Labs and Imaging studies reviewed. (See chart for details) [] Patient was evaluated for chief complaint. Work-up consisted of laboratory analysis and radiologic imaging. Results reviewed and discussed with patient and significant other. CT head without acute abnormalities CBC within normal limits patient's creatinine mildly elevated. Treatment for dizziness with Ativan. Patient states dizziness has improved. Patient also received Toradol for headache which is also improved. Patient will be discharged home with prescription Ativan and adjusted follow-up with her PCP and/or neurology referral. Cally Disclaimer: Cally Disclaimer: This electronic medical record was generated, in whole or in part, using a voice recognition dictation system. Departure Departure Impression: Primary Impression: Paresthesia Additional Impressions: Headache Dizziness Disposition: HOME / SELF CARE / HOMELESS Condition: STABLE Referrals: JOYCE IRIZARRY (PCP) Patient Instructions: Dizziness, Headache, FAQs, Paresthesia Scripts Lorazepam (ATIVAN) 0.5 Mg Tablet 0.5 MG PO TID, #14 TAB PRN dizziness Prov: JOSY PAYTON DO 02/18/21 JOSY PAYTON DO Feb 18, 2021 18:33
[2021-02-18 19:01] LABS: CREATININE 1.2 mg/dL (0.6-1.0); GFR 47.4; POTASSIUM 3.6 mmol/L (3.5-5.1)
[2021-02-18 19:07] LABS: ALBUMIN 3.3 g/dL (3.4-5.0); ALBUMIN/GLOBULIN RATIO 0.9 (1.0-1.7); TOTAL BILIRUBIN 0.2 mg/dL (0.2-1.0); TOTAL PROTEIN 6.9 g/dL (6.4-8.2)
--- NOTE | 2021-02-18 19:17 | RAD ---
CT head without contrast PQRS statement: CT scans at this facility use dose reduction including either automated exposure cont rol, iterative reconstructions, and /or weight based radiation dosing via mA and kV modification when appropriate to reduce radiation dose to as low as reasonably achievable. HISTORY: Dizziness, headache, paresthesias. 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 No intracranial hemorrhage, mass, hyd rocephalus, extra-axial fluid collections or infarction. Orbits, mastoids and bones are unremarkable. IMPRESSION: No acute abnormality. Electronically signed by: Simeon Hernandez MD (02/18/2021 7:14 PM) [facility]
[2021-02-18 22:22] VITALS: BP 118/69
[2021-02-18] MEDS ORDERED: LORA0.5T96 PO (22:24)
== END 2021-02-18 22:40 | disposition home or self-care (01) ==
LOC: ER 17:48
DX: R20.2 Paresthesia of skin (principal); R51.9 Headache, unspecified; R42 Dizziness and giddiness; E78.00 Pure hypercholesterolemia, unspecified; I10 Essential (primary) hypertension
CPT/HCPCS: 36415; 70450; 80053; 84484; 85025; 96361; 96374; 96375; 99284; J1885; J2060; J7030

== ENCOUNTER → 2022-01-31 | Outpatient (CLI) | payer OTHER ==
[~2022-01-31] MED LIST changes: +LORA0.5T96 PO
--- NOTE | 2022-02-01 10:56 | RAD ---
XR LUMBAR SPINE 2-3V, XR PELVIS 1-2V History: Reason: right buttock pain / Spl. Instructions: / History: Technique: 3 views lumbar spine, AP view the pelvis and 2 additional views of the right hip Comparison: None. Findings: Lumbar spine: Transitional lumbosacral anatomy with sacralization of L5. No acute fracture. Mild dege nerative disc changes most prominent L1-L2 and L2 on L3 as well as L4-5. Lower lumbar facet arthropat hy. Hips and pelvis: No dislocation. No acute fracture. Mild left hip degenerative changes. Impression: 1. Transitional lumbosacral anatomy with sacralization of L5. 2. Mild lumbar spondylosis. 3. Mild left hip DJD. Electronically signed by: Marcello Brush DO (02/01/2022 10:54 AM) [id number]
== END ==
LOC: LAB 15:10
PROVIDERS: ATTEND Family Medicine
DX: M47.816 Spondylosis without myelopathy or radiculopathy, lumbar region (principal); M16.12 Unilateral primary osteoarthritis, left hip; M48.8X6 Other specified spondylopathies, lumbar region; M43.27 Fusion of spine, lumbosacral region
CPT/HCPCS: 72100; 72170